=== PATIENT | female | born 1990 | race Caucasian/White ===

== ENCOUNTER 2022-02-15 19:12 | Emergency (ER) | payer MEDICAID, OTHER ==
[2022-02-15] MEDS ORDERED: 0.9%NACL 1000ML 1,000 ML IV ONE (19:26)
[2022-02-15] MEDS ORDERED: DiphenhydrAMINE HCL 50 MG/ML VIAL ONE (19:30)
[2022-02-15] MEDS ORDERED: SOLU-MEDROL 125MG VIAL ONE (19:30)
[2022-02-15] MEDS ORDERED: FAMOTIDINE 20MG VIAL IV ONE (19:30)
[2022-02-15 19:55] LABS: BASOPHILS % (AUTO) 0.2 % (0.0-5.0); EOSINOPHILS % (AUTO) 0.5 % (0.0-8.0); HEMATOCRIT 36.4 % (36-48); LYMPHOCYTES % (AUTO) 15.9 % (21.0-51.0); MEAN CORPUSCULAR HEMOGLOBIN 27.9 pg (27.0-33.0); MEAN CORPUSCULAR HGB CONC 32.1 g/dL (32.0-36.0); MEAN CORPUSCULAR VOLUME 86.9 fL (79-99); MONOCYTES % (AUTO) 2.8 % (3.0-13.0); NEUTROPHILS % (AUTO) 80.2 % (40.0-77.0); PLATELET COUNT (AUTO) 234 K/uL (130-400); RED BLOOD CELL COUNT(AUTO) 4.19 MIL/uL (4.00-5.50); WHITE BLOOD COUNT (AUTO) 12.3 K/uL (4.8-10.8)
[2022-02-15] MEDS ORDERED: ONDANSETRON 4MG INJ IVP ONE (20:00)
[2022-02-15 20:09] LABS: CREATININE 0.8 mg/dL (0.5-1.5); POTASSIUM 3.3 mmol/L (3.5-5.1)
[2022-02-15 20:27] LABS: ALBUMIN 3.2 g/dL (3.5-5.0); BILIRUBIN,TOTAL 0.2 mg/dL (0.2-1.0); TOTAL PROTEIN, SERUM 6.5 g/dL (6.0-8.3)
[2022-02-15] MEDS ORDERED: EPIN0.3P2 IM (23:08)
[2022-02-15 23:30] VITALS: BP 101/63
== END 2022-02-15 23:30 | disposition home or self-care (01) ==
LOC: EDH 19:12
DX: T78.03XA Anaphylactic reaction due to other fish, initial encounter (principal); R11.2 Nausea with vomiting, unspecified; R06.02 Shortness of breath; R42 Dizziness and giddiness; Z79.52 Long term (current) use of systemic steroids
CPT/HCPCS: 36415; 80053; 84702; 85025; 96361; 96374; 96375; 99284; J1200; J2405; J2930; J3490; J7030